=== PATIENT | female | born 1985 | race African-American/Black ===

== ENCOUNTER 2016-07-21 14:26 | Emergency (ER) | payer OTHER ==
[~2016-07-21] VITALS: Ht 162.6 cm; Wt 85.0 kg
[2016-07-21] MEDS: CYCLOBENZAPRINE 10MG TABLET PO ONE (16:03)
[2016-07-21] MEDS: KETOROLAC 60MG/2ML VIAL IM ONE (16:03)
[2016-07-21] MEDS: LORAZEPAM 1MG TABLET PO ONE (17:28)
[2016-07-21 19:40] VITALS: BP 115/62
== END 2016-07-21 20:35 | disposition home or self-care (01) ==
LOC: ER 14:27
DX: M54.5 Low back pain (principal); G89.29 Other chronic pain
CPT/HCPCS: 81025; 96372; 99283; J1885